=== PATIENT | female | born 1970 | race Caucasian/White ===

== ENCOUNTER 2016-10-04 13:38 | Outpatient (CLI) | payer OTHER | END 2016-10-04 13:40 | LOC: LAB 13:38 | PROVIDERS: ATTEND Family Medicine | DX: E03.9 Hypothyroidism, unspecified (principal) | CPT/HCPCS: 36415; 84443 ==

== ENCOUNTER 2017-08-19 11:47 | Emergency (ER) | payer OTHER ==
[2017-08-19] MEDS ORDERED: KETOROLAC TROMETHAMINE 60 MG/2 ML VIAL ONE (12:29)
[2017-08-19] MEDS ORDERED: KETOROLAC TROMETHAMINE 60 MG/2 ML VIAL IM ONE (12:29)
--- NOTE | 2017-08-19 12:35 | ED Physician Documentation ---
Headache - HISTORIAN Historian: patient - HPI Stated Complaint: Headache/Sore throat Chief Complaint: Headache Additional Information: throbbing occipital headache from base skull. worst h/a of life but has had prev similar lesser. also assoc bilateral and throat pain Onset: days ago (progressive past two days) Timing: gradual New Gradual Onset: No Exposure To: none Severity: moderate Quality: similar to previous (but sig worse) Associated Symptoms: problems with vision, sensitivity to light, nausea. denies : fever, chills Preceding Symptoms: visual disturbance - ROS NEURO/PSYCH: anxiety, depression. denies: confusion EYES/ENT: sore throat, difficulty swallowing. denies: sinus pain, drainage CVS/RESP: none GI/: denies: abdominal pain, diarrhea MS/SKIN/LYMPH: back pain. denies: muscle aches all systems neg except as marked: Yes - PAST HX Medical History: diabetes, hypertension Surgical History: other (hyster c-sect) Allergies/Adverse Reactions: Allergies Allergy/AdvReac Type Severity Reaction Status Date / Time aspirin AdvReac Intermediate Hives Verified 08/19/17 12:05 bee venom (honey bee) AdvReac Intermediate Swelling Verified 08/19/17 12:05 Penicillins AdvReac Intermediate Hives/Swell Verified 08/19/17 12:05 ing - SOCIAL HX Smoking History: non-smoker Alcohol Use: none Drug Use: none - Family HX Family History: none - VITAL SIGNS Vital Signs: Vital Signs Temp Pulse Resp BP Pulse Ox 97.6 F 74 19 125/99 99 08/19/17 11:50 08/19/17 11:50 08/19/17 11:50 08/19/17 11:50 08/19/17 11:50 - REVIEWED ASSESSMENTS Nursing Assessment Reviewed: Yes Vitals Reviewed: Yes ED Results Lab/Radiology - Orders Orders: ED Orders Category Date Time Status CT BRAIN W/O CONTRAST Stat Exams 08/19/17 Ordered Ketorolac Tromethamine [Toradol] Med 08/19/17 12:29 Discontinued 60 mg .ROUTE .STK-MED ONE Ketorolac Tromethamine [Toradol] Med 08/19/17 12:29 Discontinued 60 mg IM NOW ONE Headache Physical Exam - EXAM General Appearance: moderate distress EENT: no facial swelling, eyes nml inspection Neck: other (palp tenderness hemal base neck) Respiratory: no resp distress, breath sounds normal CVS: reg. rate & rhythm, heart sounds nml Abdomen: non-tender Skin: color nml, no rash. No: cyanosis, diaphoresis, pallor, ecchymosis Extremitites: non-tender, normal range of motion - NEURO/PSYCH Higher Functions: alert, nml speech, mood/affect nml Cerebellar: nml as tested Sensorimotor: motor nml, sensation nml. denies: weakness, aphasia Discharge Clincal Impression: Tension headache Referrals: Asael De Los Santos MD [Primary Care Provider] - 2 Days Condition: Good Disposition: 01 HOME, SELF-CARE Decision to Admit: NO Decision Time: 13:18
[2017-08-19 13:21] VITALS: BP 155/90
--- NOTE | 2017-08-19 13:24 | Diagnostic Imaging Report ---
MIKEY LARSON [facility] [address] [facility] [address] [place], [place]. [address] Report Submission Date: Aug 19, 2017 12:53:22 PM CONTENT ASSISTANT Patient Study Name: ANJELICA CHAMPAGNE Date: Aug 19, 2017 12:37:26 PM CONTENT ASSISTANT Modality Type: CT\SR Gender: F Description: CT BRAIN W/O CONTRAST : 72 Institution: [facility] Physician: MIKEY LARSON Examination: CT head without contrast History: Headache Comparison exam: None available Technique: Noncontrast head CT protocol. Findings: Ventricles and sulci are appropriate for patient age. Cerebrocerebellar parenchyma demonstrates normal attenuation. No evidence for parenchymal hemorrhage. No evidence for mass or mass effect. No midline shift. No extra axial fluid collections. Partial visualization of the paranasal sinuses , mastoid air cells, orbits, skull and scalp without gross irregularity. Impression: No acute parenchymal process. No hemorrhage. Electronically signed on Aug 19, 2017 12:53:22 PM CONTENT ASSISTANT by: Rafael WESTBROOK
== END 2017-08-19 13:19 | disposition home or self-care (01) ==
LOC: ED 11:47
DX: G44.209 Tension-type headache, unspecified, not intractable (principal)
CPT/HCPCS: 70450; 87070; 87880; 96372; 99283; J1885

== ENCOUNTER 2017-11-29 09:25 | Outpatient (CLI) | payer OTHER ==
--- NOTE | 2017-11-29 10:23 | Diagnostic Imaging Report ---
CHRIS ROBBINS [facility] [address] [facility] [address] [place] [id number] Report Submission Date: Nov 29, 2017 10:10:27 AM CDT Patient Study Name: ANJELICA CHAMPAGNE Date: Nov 29, 2017 9:46:56 AM CDT Modality Type: DX Gender: F Description: CHEST : 72 Institution: [facility] Physician: CHRIS ROBBINS Chest 2 views History: Chest pain for 1 month Findings: The lungs are clear and well expanded. There is no pleural effusion. Osseous structures are unremarkable. Heart size and pulmonary vascularity are normal. Impression: Normal. Electronically signed on Nov 29, 2017 10:10:27 AM CDT by: Dheeraj WESTBROOK
== END 2017-11-29 09:30 ==
LOC: LAB 09:25
PROVIDERS: ATTEND Family Medicine
DX: E11.9 Type 2 diabetes mellitus without complications (principal); R07.2 Precordial pain; E78.00 Pure hypercholesterolemia, unspecified
CPT/HCPCS: 36415; 71046; 80061; 83036; 84484

== ENCOUNTER 2018-12-06 11:49 | Outpatient (CLI) | payer OTHER | END 2018-12-06 11:50 | LOC: LAB 11:49 | PROVIDERS: ATTEND Family Medicine | DX: E03.9 Hypothyroidism, unspecified (principal); E11.9 Type 2 diabetes mellitus without complications | CPT/HCPCS: 36415; 83036; 84443 ==